=== PATIENT | male | born 1995 | race Caucasian/White ===

== ENCOUNTER 2022-11-10 11:16 | Observation (INO) ==
[2022-11-10] MEDS ORDERED: SODIUM CHLORIDE 0.9% 1000ML 1,000 ML IV ONE (11:34)
[2022-11-10] MEDS ORDERED: KETOROLAC TROMETHAMINE 15 MG/ML VIAL IV STA (11:34)
--- NOTE | 2022-11-10 11:45 | Emergency Department Note ---
Impression & Plan Acute cholecystitis ED Provider Note CHIEF COMPLAINT: Right side pain HISTORY OF PRESENT ILLNESS: This 27-year-old male patient presents to the emergency department via private vehicle for evaluation of "right side pain". The patient states pain began at about 7 PM last evening while he was lying in bed. He notes he ate hot dogs for dinner. He states he developed a pain in the right lower back but now reports a throbbing however on the right side. He states the pain gets worse when there is pressure on either side of the ribs. He states the pain is worse with any pressure on the abdomen. He denies any dysuria, urinary frequency, urinary hesitancy, hematuria. No recent illness or fever. No nausea or vomiting. No diarrhea or constipation. No cough. No leg pain or swelling. The patient states his mother was concerned for appendicitis. He notes no change in his appetite but has not wanted to eat due to the pain. The patient rates his pain 7/10. He has not taken any medications for his symptoms REVIEW OF SYSTEMS: A 10 system review of systems was performed with positives and pertinent negatives listed in the history of present illness. All other systems were reviewed and are negative. ALLERGIES: None PHYSICAL EXAM: VITALS: Vitals are noted on the nurse's note and reviewed by myself. Vital signs stable. GENERAL: This is a 27-year-old man, in no acute distress, nondiaphoretic, well- developed well-nourished. SKIN: The skin was without rashes, erythema, edema, or bruising. There is no tenting of the skin. Capillary refill less than 2 seconds. HEAD: Normocephalic atraumatic. EYES: Conjunctivae without injection, sclerae without icterus. NECK: Supple without nuchal rigidity. No lymphadenopathy. HEART: Regular rate and rhythm without murmurs gallops or rubs. LUNGS: Clear to auscultation bilaterally without wheezes, rales or rhonchi. No retractions or accessory muscle use. ABDOMEN: Positive bowel sounds x 4. Diffuse tenderness to palpation of the left and right upper quadrants. The abdomen is otherwise there is guarding with palpation of the upper abdomen soft, nontender, without masses or organomegaly. Noe sign negative. No rebound tenderness. No CVA tenderness bilaterally MUSCULOSKELETAL: No muscle atrophy, erythema, or edema noted. Full range of motion without joint tenderness in all extremities. No tenderness to palpation. Normal gait. Strength 5/5 throughout. NEURO: Patient was alert and oriented to person place and time. No focal neurological deficits. EMERGENCY DEPARTMENT COURSE/MDM: The patient was seen and evaluated as above. Unclear etiology initially, the patient is complaining of right flank pain ra diating into the right upper quadrant. The patient does have tenderness to palpation of the entire upper abdomen. Work-up completed as noted. IV access was obtained, labs drawn. The patient does have a leukocytosis of 12.25. No concerning anemia or thrombocytopenia. Renal, hepatic function and electrolytes without significant abnormality. Lipase 39. Urinalysis appears to be mildly contaminated, no clear evidence of infection. COVID-[address] imaging was performed due to concern for cholecystitis versus ureteral stone. This was consistent with acute cholecystitis. I did reach out to general surgery and spoke with Ml Goncalves PA-C who did see and evaluate the patient. She requested an ultrasound of the placed at the recommendation of the general surgeon, Dr. Valenzuela. This was ordered and completed. The patient was given a K rider due to the mild hypokalemia of 3.3. Ultrasound was consistent with acute cholecystitis. The patient will be evaluated by the general surgeon. Please see surgery dictation regarding ongoing management and care of this patient. Etiologies such as appendicitis, diverticulitis, obstruction, inflammatory bowel disease, renal colic, PUD, biliary pathology, pancreatitis, mesenteric ischemia, aortic pathology, infections, genitourinary, UTI, perforated viscus, as well as others were entertained. I attest that I have personally reviewed the patient's current medication list. Blood Pressure Screening: Patient was found to have a slightly elevated blood pressure due to circumstances. I do not believe that the patient requires hypertension monitoring. The chart was completed utilizing [employer] Speech voice recognition software. Grammatical errors, random word insertions, pronoun errors, and incomplete sentences are an occasional consequence of this system due to software limitations, ambient noise, and hardware issues. Any formal questions or concerns about the content, text, or information contained within the body of this dictation should be directly addressed to the provider for clarification. Past Med/Surg History Medical History No pertinent past medical history Family History Brother Factor II deficiency Social History Smoking Status: Never smoker Preferred Language: Maltese Feels Safe at Home: Yes Allergies Allergies Allergy/AdvReac Type Severity Reaction Status Date / Time No Known Allergies Allergy Mild Unverified 10/15/07 13:41 Home Meds Home Medications Medication Instructions Recorded Confirmed None (Patient States No Home Meds) ##0 10/15/07 Results & Data (ED) Vital Signs Vital Signs - 24 hr 11/10/22 11:18 11/10/22 11:35 11/10/22 12:28 Temperature 36.4 C L Temperature Source Temporal Artery Scan Pulse Rate 108 H 93 H 99 H Pulse Rate [Apical] Respiratory Rate 18 20 Respiratory Depth Normal Blood Pressure 183/133 H Blood Pressure [Left Arm] Blood Pressure Mean 149 Blood Pressure Mean [Left Arm] Blood Pressure Position [Left Arm] Pulse Oximetry 100 99 Oxygen Delivery Method Room Air Room Air Sepsis Recent Fever Within 48 Hours No Sepsis New/Unexplained Change in Mental Status No Sepsis Action Taken by Nursing No Action Required 11/10/22 13:00 Temperature Temperature Source Pulse Rate Pulse Rate [Apical] 89 Respiratory Rate 20 Respiratory Depth Blood Pressure Blood Pressure [Left Arm] 156/88 H Blood Pressure Mean Blood Pressure Mean [Left Arm] 110 Blood Pressure Position [Left Arm] Sitting Pulse Oximetry 99 Oxygen Delivery Method Room Air Sepsis Recent Fever Within 48 Hours Sepsis New/Unexplained Change in Mental Status Sepsis Action Taken by Nursing Laboratory Data 11/10/22 11:30 11/10/22 11:30 Lab Results 11/10/22 11/10/22 11/10/22 Range/Units 11:30 11:30 11:30 WBC 12.25 H (4.8-10.8) K/ul RBC 4.93 (4.70-6.10) M/uL Hgb 13.8 L (14.0-18.0) g/dl Hct 40.8 L (42.0-52.0) % MCV 82.8 (80.0-100.0) fL MCH 28.0 (25.0-34.0) pg MCHC 33.8 (32.0-36.0) g/dL RDW Std Deviation 37.2 (36.4-46.3) fL RDW Coeff of Ioana 12.3 (11.5-14.5) % Plt Count 286 (130-400) K/uL MPV 10.3 (9.4-12.4) fL Immature Gran % (Auto) 0.2 % Neut % (Auto) 71.6 % Lymph % (Auto) 18.6 % [place] % (Auto) 8.3 % Eos % (Auto) 1.1 % Baso % (Auto) 0.2 % Neut # (Auto) 8.75 H (1.40-6.50) K/uL Lymph # (Auto) 2.28 (1.2-3.4) K/uL [place] # (Auto) 1.02 H (0.11-0.59) K/uL Eos # (Auto) 0.14 (0-0.50) K/uL Baso # (Auto) 0.03 (0-0.2) K/uL Immature Gran # (Auto) 0.03 (0.01-0.20) K/uL APTT (21.0-31.0) Seconds PTT Ratio Sodium 136 (136-145) mmol/L Potassium 3.3 L (3.5-5.1) mmol/L Chloride 104 (98-107) mmol/L Carbon Dioxide 25 (21-32) mmol/L Anion Gap 7 (3-11) BUN 4 L (6-23) mg/dl Creatinine 0.92 (0.6-1.4) mg/dl Est Cr Clr Drug Dosing 144.6 ml/min Est GFR ( Amer) 132.6 ml/min Est GFR (Non-Af Amer) 114.4 ml/min BUN/Creatinine Ratio 4.3 L (10-20) Glucose 103 H (70-99(Fasting)) mg/dl Calcium 9.2 (8.6-10.3) mg/dl Total Bilirubin 0.4 (0.2-1.0) mg/dl AST 17 (13-39) U/L ALT 21 (7-52) U/L Alkaline Phosphatase 90 (34-104) U/L Total Protein 7.5 (6.0-8.3) gm/dl Albumin 4.7 (3.4-5.0) gm/dl Globulin 2.8 (2.5-4.0) gm/dl Albumin/Globulin Ratio 1.7 (0.9-2) Lipase 39 (11-82) U/L Urine Color Yellow Urine Appearance Turbid A (Clear) Urine pH 8.0 H (4.5-7.5) Ur Specific [place] 1.020 (1.000-1.030) Urine Protein Negative (Negative) Urine Glucose (UA) Negative (Negative) Urine Ketones Negative (Negative) Urine Blood Negative (Negative) Urine Nitrite Negative (Negative) Urine Bilirubin Negative (Negative) Urine Urobilinogen Negative (Negative) Ur Leukocyte Esterase Negative (Negative) Urine WBC (Auto) 1-5 (0-5) /hpf Urine RBC (Auto) 0-4 (0-4) /hpf U Hyaline Cast (Auto) 1-5 (0-5) /lpf U Epithel Cells (Auto) 5-10 H (0-5) /lpf Urine Bacteria (Auto) Negative (Negative) SARS-CoV-2, RNA, NAAT (NEGATIVE) 11/10/22 11/10/22 Range/Units 11:42 13:39 WBC (4.8-10.8) K/ul RBC (4.70-6.10) M/uL Hgb (14.0-18.0) g/dl Hct (42.0-52.0) % MCV (80.0-100.0) fL MCH (25.0-34.0) pg MCHC (32.0-36.0) g/dL RDW Std Deviation (36.4-46.3) fL RDW Coeff of Ioana (11.5-14.5) % Plt Count (130-400) K/uL MPV (9.4-12.4) fL Immature Gran % (Auto) % Neut % (Auto) % Lymph % (Auto) % [place] % (Auto) % Eos % (Auto) % Baso % (Auto) % Neut # (Auto) (1.40-6.50) K/uL Lymph # (Auto) (1.2-3.4) K/uL [place] # (Auto) (0.11-0.59) K/uL Eos # (Auto) (0-0.50) K/uL Baso # (Auto) (0-0.2) K/uL Immature Gran # (Auto) (0.01-0.20) K/uL APTT 26.8 (21.0-31.0) Seconds PTT Ratio 1.0 Sodium (136-145) mmol/L Potassium (3.5-5.1) mmol/L Chloride (98-107) mmol/L Carbon Dioxide (21-32) mmol/L Anion Gap (3-11) BUN (6-23) mg/dl Creatinine (0.6-1.4) mg/dl Est Cr Clr Drug Dosing ml/min Est GFR ( Amer) ml/min Est GFR (Non-Af Amer) ml/min BUN/Creatinine Ratio (10-20) Glucose (70-99(Fasting)) mg/dl Calcium (8.6-10.3) mg/dl Total Bilirubin (0.2-1.0) mg/dl AST (13-39) U/L ALT (7-52) U/L Alkaline Phosphatase (34-104) U/L Total Protein (6.0-8.3) gm/dl Albumin (3.4-5.0) gm/dl Globulin (2.5-4.0) gm/dl Albumin/Globulin Ratio (0.9-2) Lipase (11-82) U/L Urine Color Urine Appearance (Clear) Urine pH (4.5-7.5) Ur Specific [place] (1.000-1.030) Urine Protein (Negative) Urine Glucose (UA) (Negative) Urine Ketones (Negative) Urine Blood (Negative) Urine Nitrite (Negative) Urine Bilirubin (Negative) Urine Urobilinogen (Negative) Ur Leukocyte Esterase (Negative) Urine WBC (Auto) (0-5) /hpf Urine RBC (Auto) (0-4) /hpf U Hyaline Cast (Auto) (0-5) /lpf U Epithel Cells (Auto) (0-5) /lpf Urine Bacteria (Auto) (Negative) SARS-CoV-2, RNA, NAAT NEGATIVE (NEGATIVE) Administered Medications Morphine Sulfate (Morphine Sulfate 2 Mg/Ml Carp) 2 mg IV Q2H PRN PRN Reason: Pain Stop: 11/24/22 12:47 Last Admin: 11/10/22 14:48 Dose: 2 mg Documented By: Admin: 11/10/22 12:59 Dose: 2 mg Documented By: QGV Discontinued Medications Sodium Chloride (Nss 1000ml) 1,000 mls @ 999 mls/hr IV .Q1H1M ONE Stop: 11/10/22 12:34 Last Infusion: 11/10/22 13:18 Dose: 0 mls/hr Documented By: Admin: 11/10/22 11:44 Dose: 999 mls/hr Documented By: QGV Potassium Chloride (K Max / Wtr) 10 meq in 100 mls @ 100 mls/hr IV ONE ONE; Protocol Stop: 11/10/22 13:49 Last Admin: 11/10/22 12:58 Dose: 100 mls/hr Documented By: QGV Ketorolac Tromethamine (Ketorolac Tromethamine 15 Mg/Ml Vial) 15 mg IV NOW STA Stop: 11/10/22 11:35 Last Admin: 11/10/22 11:43 Dose: 15 mg Documented By: QGV Morphine Sulfate (Morphine Sulfate 4 Mg/Ml 1 Ml Carp\\Vial) 4 mg IV NOW STA Stop: 11/10/22 12:19 Last Admin: 11/10/22 12:27 Dose: 4 mg Documented By: QGV Ondansetron HCl (Ondansetron Inj 2 Mg/Ml 2 Ml Vial) 4 mg IV NOW STA Stop: 11/10/22 12:07 Last Admin: 11/10/22 12:10 Dose: 4 mg Documented By: QGV Imaging Data Radiologist's Impression: Abdomen/Pelvis CT 11/10/22 11:34 CT SCAN OF THE ABDOMEN AND PELVIS WITHOUT IV CONTRAST CLINICAL HISTORY: Right flank pain. COMPARISON STUDY: No priors. TECHNIQUE: CT scan of the abdomen and pelvis is performed from the lung bases to the proximal femora. Images are reviewed in the axial, sagittal, and coronal planes. IV contrast was not administered for this examination. A dose lowering technique was utilized adhering to the principles of ALARA. CT DOSE: 468.30 mGy.cm FINDINGS: Lung bases: The heart is normal in size and without pericardial effusion. The lung bases are clear. A small hiatal hernia is noted. Liver: The unenhanced liver is mildly enlarged measuring 18.3 cm in length. The liver demonstrates diminished attenuation indicating mild steatosis. There is no intrahepatic biliary ductal dilatation. Gallbladder: The gallbladder is distended and appears mildly thick-walled. There is surrounding infiltration and trace fluid. Findings are consistent with acute cholecystitis. Spleen: Normal in size and attenuation. Pancreas: Unremarkable. Adrenal glands: Unremarkable. Kidneys: The unenhanced kidneys are normal in size and without hydronephrosis. There are no renal calculi identified. There is no evidence of contour deforming renal mass lesion. Abdominal vasculature: The abdominal aorta is normal in course and caliber. Bowel: There is no bowel obstruction. Mild fecal retention is seen throughout the colon. The appendix is well-visualized and normal. Peritoneum: There is no intraperitoneal free air or abdominal ascites. There is a fat-containing umbilical hernia. Lymphadenopathy: None. Pelvic viscera: The bladder is decompressed and grossly unremarkable. The prostate and seminal vesicles are normal as visualized. Skeletal structures: No lytic or blastic lesions are seen. IMPRESSION: 1. Acute cholecystitis. Clinical and laboratory correlation will be required. 2. Hepatomegaly and mild steatosis. 3. Normal appendix. 4. Additional findings as above. ACT 112: Negative or not required by law. Electronically signed by: Jose Eduardo Quijano M.D. 11/10/2022 12:04 PM Chest X-Ray 11/10/22 11:35 XR chest 1V portable HISTORY: epigastric, RUQ pain COMPARISON: None. FINDINGS: The lungs are clear. Cardiac silhouette is normal in size. No pleural effusions. No pneumothorax. IMPRESSION: No acute process. ACT 112: Negative or not required by law. Electronically signed by: Chong Aguilar M.D. 11/10/2022 1:00 PM Liver Ultrasound 11/10/22 12:47 ABDOMINAL ULTRASOUND, RIGHT UPPER QUADRANT HISTORY: Acute right upper quadrant abdominal pain eval for acute yocasta, gallstones. COMPARISON: Study of same day. FINDINGS: Pancreas: The pancreas demonstrates a normal echotexture. Liver: Increased echogenicity of the hepatic parenchyma. The liver measures 15 cm in length. No hepatic mass Gallbladder: Cholelithiasis with layering sludge. The gallbladder wall is upper limits of normal at 3 mm. The pericholecystic inflammation seen on the CT study is not well evaluated by ultrasound. Positive sonographic Noe's sign. CBD: 0.4 cm. Right kidney: No hydronephrosis. IMPRESSION: 1. Cholelithiasis with sonographic findings suggestive of acute cholecystitis. 2. No biliary ductal dilation. ACT 112: Negative or not required by law. Electronically signed by: Hayes Bailey M.D. 11/10/2022 2:07 PM Discharge Plan Visit Data Chief Complaint: Back Injury/Pain Stated Complaint: RIGHT SIDE PAIN ED Provider: Emery Little ED Midlevel Provider: Lara Lassiter Discharge Problem: Acute cholecystitis Patient Disposition: Being Evaluated by Surgeon Condition: Good Forms Stand Alone Forms: Humagade Prescriptions Prescriptions: No Action None (Patient States No Home Meds) . Qty: 0 Referrals Referrals: Kaushal Holman PA-C [Physician Flume Worker] -
[2022-11-10 11:47] LABS: Basophils # (auto) 0.03 K/uL (0-0.2); Basophils % (auto) 0.2 %; Eosinophils # (auto) 0.14 K/uL (0-0.50); Eosinophils % (auto) 1.1 %; Hematocrit (blood only) 40.8 % (42.0-52.0); Hemoglobin 13.8 g/dl (14.0-18.0); Immature Granulocytes # (auto) 0.03 K/uL (0.01-0.20); Immature Granulocytes % (auto) 0.2 %; Lymphocytes # (auto) 2.28 K/uL (1.2-3.4); Lymphocytes % (auto) 18.6 %; Mean Corpuscular Hgb Conc 33.8 g/dL (32.0-36.0); Mean Corpuscular Volume 82.8 fL (80.0-100.0); Mean Platelet Volume 10.3 fL (9.4-12.4); Monocytes # (auto) 1.02 K/uL (0.11-0.59); Monocytes % (auto) 8.3 %; Neutrophils # (auto) 8.75 K/uL (1.40-6.50); Neutrophils % (auto) 71.6 %; Platelet Count 286 K/uL (130-400); RDW Coefficient of Variation 12.3 % (11.5-14.5); RDW Standard Deviation 37.2 fL (36.4-46.3); Red Blood Count 4.93 M/uL (4.70-6.10); White Blood Count 12.25 K/ul (4.8-10.8)
[2022-11-10 12:00] LABS: Appearance Urine Turbid (Clear); Bacteria Urine Automated Negative (Negative); Bilirubin Urine Negative (Negative); Blood Urine Negative (Negative); Color Urine Yellow; Glucose Urine UA Negative (Negative); Ketones Urine Negative (Negative); Leukocyte Esterase Urine Negative (Negative); Nitrite Urine Negative (Negative); Protein Urine Negative (Negative); RBC Urine Automated 0-4 /hpf (0-4); Urobilinogen Urine Negative (Negative)
[2022-11-10] MEDS ORDERED: ONDANSETRON INJ 2 MG/ML 2 ML VIAL IV STA (12:06)
--- NOTE | 2022-11-10 12:06 | CT Scan Report ---
CT SCAN OF THE ABDOMEN AND PELVIS WITHOUT IV CONTRAST CLINICAL HISTORY: Right flank pain. COMPARISON STUDY: No priors. TECHNIQUE: CT scan of the abdomen and pelvis is performed from the lung bases to the proximal femora. Images are reviewed in the axial, sagittal, and coronal planes. IV contrast was not administered for this examination. A dose lowering technique was utilized adhering to the principles of ALARA. CT DOSE: 468.30 mGy.cm FINDINGS: Lung bases: The heart is normal in size and without pericardial effusion. The lung bases are clear. A small hiatal hernia is noted. Liver: The unenhanced liver is mildly enlarged measuring 18.3 cm in length. The liver demonstrates di minished attenuation indicating mild steatosis. There is no intrahepatic biliary ductal dilatation. Gallbladder: The gallbladder is distended and appears mildly thick-walled. There is surrounding infil tration and trace fluid. Findings are consistent with acute cholecystitis. Spleen: Normal in size and attenuation. Pancreas: Unremarkable. Adrenal glands: Unremarkable. Kidneys: The unenhanced kidneys are normal in size and without hydronephrosis. There are no renal ton culi identified. There is no evidence of contour deforming renal mass lesion. Abdominal vasculature: The abdominal aorta is normal in course and caliber. Bowel: There is no bowel obstruction. Mild fecal retention is seen throughout the colon. The appendix is well-visualized and normal. Peritoneum: There is no intraperitoneal free air or abdominal ascites. There is a fat-containing umbi lical hernia. Lymphadenopathy: None. Pelvic viscera: The bladder is decompressed and grossly unremarkable. The prostate and seminal vesicl es are normal as visualized. Skeletal structures: No lytic or blastic lesions are seen. IMPRESSION: 1. Acute cholecystitis. Clinical and laboratory correlation will be required. 2. Hepatomegaly and mild steatosis. 3. Normal appendix. 4. Additional findings as above. ACT 112: Negative or not required by law. Electronically signed by: Jose Eduardo Quijano M.D. 11/10/2022 12:04 PM
[2022-11-10 12:07] LABS: Albumin Level 4.7 gm/dl (3.4-5.0); Bilirubin,Total 0.4 mg/dl (0.2-1.0); Calcium 9.2 mg/dl (8.6-10.3); Potassium 3.3 mmol/L (3.5-5.1)
[2022-11-10 12:13] LABS: Albumin Globulin Ratio 1.7 (0.9-2); BUN Creatinine Ratio 4.3 (10-20); Creatinine Clr Calc Pharmacy 144.6 ml/min; Est GFR (African American) 132.6 ml/min; Est GFR (Non-African American) 114.4 ml/min; Globulin 2.8 gm/dl (2.5-4.0); Total Protein 7.5 gm/dl (6.0-8.3)
[2022-11-10] MEDS ORDERED: MoRPHine SULFATE 4 MG/ML 1 ML CARP\\VIAL IV STA (12:18)
--- NOTE | 2022-11-10 12:49 | History & Physical Report ---
Date of Service November 10, 2022 Assessment & Plan (1) Acute cholecystitis: Plan: This is a 27y M with no significant PMH who presents to the [facility] ED on 11/10/22 with complaints of abdominal and back pain starting yesterday evening after eating hotdogs for dinner. Pain is located underneath his R shoulder blade that radiates across his upper R abdomen. A CT a/p was obtained that revealed evidence of acute cholecystitis. WBC 12.5. LFTs are unremarkable. K 3.3. Vitals show patient is slightly sinus tachycardic with hypertension. On exam patient appears uncomfortable due to pain. His abdomen is soft with tenderness to palpation elicited in the RUQ. Interesting CT scan without mention of gallstones. History of Present Illness Primary Care Provider: NO PCP This is a 27y M with no significant PMH who presents to the [facility] ED on 11/10/22 with complaints of abdominal and back pain. He states the pain started yesterday around 7pm, located underneath his R shoulder blade. It then progressed from his back across his right upper abdomen/epigastric region. He reports sometimes the pain reaches a 9/10 in severity. He describes it as constant with intermittent waves of severe pain. He last ate hotdogs last night for dinner prior to pain starting. He reported to the ER due to ongoing symptoms. A CT a/p was obtained that revealed evidence of acute cholecystitis. He endorses + nausea and mild SOB related to the pain. He denies any fevers/chills, CP, diarrhea/constipation, or urinary symptoms. No prior surgical history. His brother has a history of Prothrombin gene mutation making him susceptible to blood clots. The mother is a carrier and his brother has a different father. Humble himself has never been tested and he has never had prior surgeries. Allergies Allergy/AdvReac Type Severity Reaction Status Date / Time No Known Allergies Allergy Mild Unverified 10/15/07 13:41 Home Medications Medication Instructions Recorded Confirmed Type None (Patient States No Home Meds) ##0 10/15/07 History Past Med/Surg History Medical History No pertinent past medical history Family History Brother Factor II deficiency Social History Smoking Status: Never smoker Preferred Language: Thai Feels Safe at Home: Yes Review of Systems Constitutional: no fever and no chills Respiratory: mild SOB with severity of pain Cardiovascular: no chest pain Gastrointestinal: + abdominal pain (RUQ), + bloating and + nausea; no vomiting and no change in bowel habits Genitourinary: no problem reported Musculoskeletal: R sided back pain Physical Exam Physical Exam: awake/alert, in mild distress secondary to pain Constitutional: well developed, well nourished and + acute distress; not ill appearing and + uncomfortable not toxic appearing but writhing in pain Respiratory: normal respiratory effort Gastrointestinal (Abdomen): Inspection/Auscultation: + abdomen distended (mild) Percussion/Palpation: + abdomen tender (ttp in RUQ/epigastric regions) and abdomen soft Results & Data Results & Data Vital Signs (Past 12 Hours) Vital Signs Temp Pulse Resp BP Pulse Ox O2 Del Method 11/10/22 12:28 99 H 11/10/22 11:35 93 H 20 99 Room Air 11/10/22 11:18 36.4 C L 108 H 18 183/133 H 100 Room Air Diagnostic Findings CT SCAN OF THE ABDOMEN AND PELVIS WITHOUT IV CONTRAST CLINICAL HISTORY: Right flank pain. COMPARISON STUDY: No priors. TECHNIQUE: CT scan of the abdomen and pelvis is performed from the lung bases to the proximal femora. Images are reviewed in the axial, sagittal, and coronal planes. IV contrast was not administered for this examination. A dose lowering technique was utilized adhering to the principles of ALARA. CT DOSE: 468.30 mGy.cm FINDINGS: Lung bases: The heart is normal in size and without pericardial effusion. The lung bases are clear. A small hiatal hernia is noted. Liver: The unenhanced liver is mildly enlarged measuring 18.3 cm in length. The liver demonstrates diminished attenuation indicating mild steatosis. There is no intrahepatic biliary ductal dilatation. Gallbladder: The gallbladder is distended and appears mildly thick-walled. There is surrounding infiltration and trace fluid. Findings are consistent with acute cholecystitis. Spleen: Normal in size and attenuation. Pancreas: Unremarkable. Adrenal glands: Unremarkable. Kidneys: The unenhanced kidneys are normal in size and without hydronephrosis. There are no renal calculi identified. There is no evidence of contour deforming renal mass lesion. Abdominal vasculature: The abdominal aorta is normal in course and caliber. Bowel: There is no bowel obstruction. Mild fecal retention is seen throughout the colon. The appendix is well-visualized and normal. Peritoneum: There is no intraperitoneal free air or abdominal ascites. There is a fat-containing umbilical hernia. Lymphadenopathy: None. Pelvic viscera: The bladder is decompressed and grossly unremarkable. The [place] and seminal vesicles are normal as visualized. Skeletal structures: No lytic or blastic lesions are seen. IMPRESSION: 1. Acute cholecystitis. Clinical and laboratory correlation will be required. 2. Hepatomegaly and mild steatosis. 3. Normal appendix. 4. Additional findings as above. ACT 112: Negative or not required by law. Electronically signed by: Jose Eduardo Quijano M.D. 11/10/2022 12:04 PM Supervising Physician Co-Signing Physician Notes I saw and examined this patient in the ED. Clarified it is not a Factor 2 deficiency that would make the patient susceptible to bleeding but instead, the mother is a carrier of a prothrombin gene mutation which makes a homozygous child more susceptible to blood clots as in the case of his half brother. The mother herself has had surgery and has never had blood clots. RUQ US with numerous stones and sludge in the gallbladder. Mild signs of acute cholecystitis on the US. Afebrile, HD stable. COVID test (-). Patient in severe RUQ and right back pain and had a (+) Noe's sign with mild leukocytosis. IV antibiotics initiated. Patient started on Zosyn in the ED. Hypokalemia- patient was given a dose of K for replacement. Admit to observation under the surgical service. Will take to the OR today for planned lap yocasta. The details of the procedure were explained to the patient with his mother and brother present. Understanding of the explanation of risks and benefits was expressed and consent was obtained. Will give a dose of SQ Heparin preoperatively. SCDs to b/l LE PG Care Time/CCT Total # of Minutes Spent Total Time Spent with Patient: Total time spent is greater than 50% in coordination of care (as documented) at patient's floor/unit and/or counseling patient: Coding Level of Care Code 09613 INT INP/OBS CARE 1/40MIN Diagnoses Acute cholecystitis K81.0
[2022-11-10] MEDS ORDERED: POTASSIUM CHLORIDE / WTR 10 MEQ/100 ML PLCT IV ONE (12:50)
[2022-11-10] MEDS: MoRPHine SULFATE 2 MG/ML CARP IV PRN ×2 (12:59→14:48)
--- NOTE | 2022-11-10 13:02 | XRay Report ---
XR chest 1V portable HISTORY: epigastric, RUQ pain COMPARISON: None. FINDINGS: The lungs are clear. Cardiac silhouette is normal in size. No pleural effusions. No pneumot horax. IMPRESSION: No acute process. ACT 112: Negative or not required by law. Electronically signed by: Chong Aguilar M.D. 11/10/2022 1:00 PM
--- NOTE | 2022-11-10 14:09 | Ultrasound Report ---
ABDOMINAL ULTRASOUND, RIGHT UPPER QUADRANT HISTORY: Acute right upper quadrant abdominal pain eval for acute yocasta, gallstones. COMPARISON: Study of same day. FINDINGS: Pancreas: The pancreas demonstrates a normal echotexture. Liver: Increased echogenicity of the hepatic parenchyma. The liver measures 15 cm in length. No hepat ic mass Gallbladder: Cholelithiasis with layering sludge. The gallbladder wall is upper limits of normal at 3 mm. The pericholecystic inflammation seen on the CT study is not well evaluated by ultrasound. Posit shan sonographic Noe's sign. CBD: 0.4 cm. Right kidney: No hydronephrosis. IMPRESSION: 1. Cholelithiasis with sonographic findings suggestive of acute cholecystitis. 2. No biliary ductal dilation. ACT 112: Negative or not required by law. Electronically signed by: Hayes Bailey M.D. 11/10/2022 2:07 PM
[2022-11-10] MEDS ORDERED: PIPERACILLIN/TAZOBACTAM 3.375 GM in DEXTROSE 5% 100 ML/100 ML BAG IV STA (14:19)
[2022-11-10 14:56] LABS: Partial Thromboplastin Time 26.8 Seconds (21.0-31.0)
[2022-11-10] MEDS ORDERED: LACTATED RINGER'S 1,000 ML IV SCH (15:00)
[2022-11-10] MEDS ORDERED: HEPARIN SOD 5,000 UNIT/0.5 ML VIAL SQ SCH (15:00)
[2022-11-10] MEDS ORDERED: ATROPINE SULFATE 0.1 MG/ML 10ML SYR IV PRN (15:01)
[2022-11-10] MEDS ORDERED: fentaNYL citrate PF 100 MCG/2 ML VIAL IV PRN (15:01)
[2022-11-10] MEDS ORDERED: ePHEDrine sulfate 50 MG/ML AMP IV PRN (15:01)
[2022-11-10] MEDS ORDERED: BUPIVACAINE/EPINEPHRINE 0.5% MPF 1:200,000 30 ML VIAL ONE (15:01)
[2022-11-10] MEDS ORDERED: ONDANSETRON INJ 2 MG/ML 2 ML VIAL IV PRN ×2 (15:01→20:17)
--- NOTE | 2022-11-10 15:01 | Anesthesiology Consultation ---
Date of Service November 10, 2022 Assessment & Plan (1) Encounter for pre-operative examination: Chart Review Chart Review: Acceptable Risk for Surgery and Patient NOT seen in Pre Admission Testing Consults Requested none History Surgery Operation Date: 11/10/22 07:00 Proposed Procedures p Laparoscopic Cholecystectomy - Zee Valenzuela DO Height/Weight Height: 6 ft Weight: 93.7 kg Allergies Allergy/AdvReac Type Severity Reaction Status Date / Time No Known Allergies Allergy Mild Unverified 10/15/07 13:41 Medications Home Medications Medication Instructions Recorded Confirmed Last Taken None (Patient States No Home Meds) ##0 10/15/07 Unknown Active Medications Generic Name Dose Route Start Last Admin Trade Name Freq PRN Reason Stop Dose Admin Morphine Sulfate 2 mg 11/10/22 12:48 11/10/22 14:48 Morphine Sulfate 2 Mg/Ml Carp IV 11/24/22 12:47 2 mg Q2H PRN Administration Pain Past Medical History Medical History No pertinent past medical history Past Family History Family History Brother Factor II deficiency Social History Smoking Status: Never smoker Physical Exam Vital Signs Last Vital Signs Temp 97.5 F L 11/10/22 11:18 Pulse 89 11/10/22 13:00 Resp 20 11/10/22 13:00 BP 156/88 H 11/10/22 13:00 Pulse Ox 99 11/10/22 13:00 O2 Del Method Room Air 11/10/22 13:00 Testing Laboratory Results 11/10/22 11:30 11/10/22 11:30 APTT 26.8 Seconds (21.0-31.0) 11/10/22 11:42 Urine Color Yellow 11/10/22 11:30 Urine Appearance Turbid (Clear) A 11/10/22 11:30 Urine pH 8.0 (4.5-7.5) H 11/10/22 11:30 Ur Specific [place] 1.020 (1.000-1.030) 11/10/22 11:30 Urine Protein Negative (Negative) 11/10/22 11:30 Urine Glucose (UA) Negative (Negative) 11/10/22 11:30 Urine Ketones Negative (Negative) 11/10/22 11:30 Urine Nitrite Negative (Negative) 11/10/22 11:30 Ur Leukocyte Esterase Negative (Negative) 11/10/22 11:30 Urine WBC (Auto) 1-5 /hpf (0-5) 11/10/22 11:30 Urine RBC (Auto) 0-4 /hpf (0-4) 11/10/22 11:30 U Hyaline Cast (Auto) 1-5 /lpf (0-5) 11/10/22 11:30 U Epithel Cells (Auto) 5-10 /lpf (0-5) H 11/10/22 11:30 Urine Bacteria (Auto) Negative (Negative) 11/10/22 11:30
[2022-11-10] MEDS ORDERED: MIDAZOLAM HCL 1 MG/ML 2ML VIAL ONE (15:04)
[2022-11-10] MEDS ORDERED: ROCURONIUM BROMIDE 10 MG/ML 5 ML VIAL IV ONE (15:04)
[2022-11-10] MEDS ORDERED: PROPOFOL IV EMULSION 10 MG/ML 20 ML VIAL IV ONE (15:04)
[2022-11-10] MEDS ORDERED: fentaNYL citrate PF 100 MCG/2 ML VIAL ONE ×2 (15:04→15:41)
[2022-11-10] MEDS ORDERED: ONDANSETRON INJ 2 MG/ML 2 ML VIAL ONE (15:04)
[2022-11-10] MEDS ORDERED: DEXAMETHASONE SOD INJ 4 MG/ML VIAL ONE (15:04)
[2022-11-10] MEDS ORDERED: LIDOCAINE 2% MPF LOCAL 5 ML VIAL ONE (15:04)
[2022-11-10] MEDS ORDERED: KETAMINE 50 MG/5 ML SYRINGE ONE (16:11)
[2022-11-10] MEDS ORDERED: HYDROmorphone INJ 2 MG/ML SYR/VIAL ONE (17:22)
[2022-11-10] MEDS ORDERED: FLOSEAL HEMOSTATIC MATRIX 5ML TOP ONE (17:24)
[2022-11-10] MEDS ORDERED: LABETALOL HCL IV 5 MG/ML 20ML IV ONE (17:39)
[2022-11-10] MEDS ORDERED: GLYCOPYRROLATE 0.2 MG/ML VIAL ONE (17:57)
[2022-11-10] MEDS ORDERED: NEOSTIGMINE METHYLSULFATE 1 MG/ML 10ML VIAL ONE (17:57)
--- NOTE | 2022-11-10 18:28 | Post Operative Brief Note ---
PG Immediate Post Op with CF Date of Surgery November 10, 2022 Pre & Post Diagnosis Operation Date: 11/10/22 07:00 Pre-Op Diagnosis: Acute cholecystitis Post-Op Diagnosis: Acute cholecystitis I identified the patient and participated in the time-out.: Yes Procedure Operation Date: 11/10/22 07:00 Actual Procedures p Laparoscopic Cholecystectomy - Zee Valenzuela DO Surgeon Zee Valenzuela DO Municipal Engineer no physician Estimated Blood Loss 30 Findings Consistent with Post-Op Diagnosis Acutely infected gallbladder Specimens Specimen Description: a. gallbladder and contents Complications None
--- NOTE | 2022-11-10 19:13 | Anesthesiology Progress Note ---
Date of Service November 10, 2022 Anesthesia Post Procedure Vital Signs Vital Signs: Temp Pulse Pulse Resp BP BP Pulse Ox 11/10/22 19:00 105 H 19 119/67 100 11/10/22 18:55 101 H 15 123/66 100 11/10/22 18:45 72 10 L 118/74 100 11/10/22 18:35 36.3 C L 76 12 109/70 100 11/10/22 18:26 36.3 C L 83 18 105/66 100 11/10/22 15:35 36.9 C 86 18 161/100 H 97 11/10/22 15:01 80 17 97 11/10/22 13:00 89 20 156/88 H 99 11/10/22 12:28 99 H 11/10/22 11:35 93 H 20 99 11/10/22 11:18 36.4 C L 108 H 18 183/133 H 100 O2 Del Method O2 Flow Rate 11/10/22 19:00 Nasal Cannula 3 11/10/22 18:55 Oxymask 8 11/10/22 18:45 Oxymask 10 11/10/22 18:35 Oxymask 10 11/10/22 18:26 Oxymask 10 11/10/22 15:35 Room Air 11/10/22 15:01 Room Air 11/10/22 13:00 Room Air 11/10/22 12:28 11/10/22 11:35 Room Air 11/10/22 11:18 Room Air Transfer of Care Handoff Completed per policy Notes Mental Status: alert / awake / arousable and participated in evaluation Patient Amnestic to Procedure: Yes Nausea / Vomiting: adequately controlled Pain: adequately controlled Airway Patency, RR, SpO2: stable & adequate BP & HR: stable & adequate Hydration State: stable & adequate Anesthetic Complications: no major complications apparent and Pt Satisfied with anesthetic care
--- NOTE | 2022-11-10 19:42 | Operative Report ---
PG Post Operative Report Pre & Post Diagnosis Operation Date: 11/10/22 07:00 Pre-Op Diagnosis: Acute cholecystitis Post-Op Diagnosis: Acute cholecystitis I identified the patient and participated in the time-out.: Yes Procedure Operation Date: 11/10/22 07:00 Actual Procedures p Laparoscopic Cholecystectomy - Zee Valenzuela DO Surgeon Zee Valenzuela DO Churn Operator Margarine no physician Estimated Blood Loss 30 Findings Consistent with Post-Op Diagnosis Distended, firm gallbladder. Specimens Gallbladder Description of Procedure The patient was brought back to the operating room and placed on the OR table in supine position. Heparin 5000 SQ was administered. He was connected to cardiac and O2 monitoring and administered general anesthesia. A controlled airway was inserted. The abdomen was prepped and draped in typical sterile fashion with the operative site in view. Local anesthetic was injected into the skin at the supraumbilical area. A small stab incision was made with an 11 blade. The fascia was elevated with a towel clamp and a Veress needle was used to access the intra-abdominal space. The abdomen was insufflated to a goal pressure of 15 mmHg using CO2. Local anesthetic was injected at the epigastric area and an 11 mm port was inserted under direct visualization. After injecting local anesthetic into the skin at 2 sites along the right subcostal margin, 2 stab incisions were made with an 11 blade and two 5 mm trocars were inserted under direct visualization. There were no injuries to intra-abdominal contents identified during the insertion of the trocars. The gallbladder was very firm and distended difficult to manipulate so it was decompressed using a harpoon needle and suction. The omentum was encasing the gallbladder and this needed to be peeled away gently. There was some bleeding of omental tissues due to the dense adherence to the gallbladder. The infundibulum of the gallbladder was eventually exposed and grasped with a grasper. The cystic triangle was dilated using alternating suction and a [place] dissector. A large Calot's node was identified. The cystic duct was identified and clamped with 5 mm clips 2 proximally and 1 distally. The cystic duct was then transected using as laparoscopic can. The cystic artery was identified 3 clips were placed on this proximally. The artery was transected with the Bovie. The gallbladder was dissected away from the liver bed using cautery. There was oozing of the liver bed this was cont rolled with cautery. The area was copiously irrigated and rechecked for hemostasis. Once hemostasis was achieved with cautery, Floseal was used at the liver bed. The gallbladder was removed through the epigastric 11 mm trocar site. The trocar was replaced and the area of the liver bed was again copiously irrigated and suctioned and double checked to make sure hemostasis was still adequate. Once hemostasis was achieved the trocars were removed under direct visualization to be sure there was no bleeding from the muscles. There was no bleeding. CO2 insufflation was discontinued, excess CO2 was evacuated from the abdomen, all of the instruments and trocars were removed. The gallbladder was sent off to pathology and labeled container for analysis. The epigastric port site was closed at the level of the fascia with 0 Vicryl sutures. Local anesthetic was injected into the subcutaneous tissue at all 4 incision sites. 4-0 Vicryl was used to approximate the dermis at all 4 incision sites. The incisions were then dressed with Dermabond glue. The patient tolerated the procedure well. He was awakened from anesthesia, the secure airway was removed and the patient was transferred to recovery in stable condition. I attest to the content of the Intraoperative Record and any orders documented therein. Any exceptions are noted below.
[2022-11-10] MEDS ORDERED: ACETAMINOPHEN 325 MG TAB PO PRN (20:17)
[2022-11-10] MEDS ORDERED: oxyCODONE HCL IR 5 MG TAB (IMMEDIATE RELEASE) PO PRN ×2 (20:17)
[2022-11-10] MEDS: LACTATED RINGER'S 1,000 ML IV SCH (21:08)
[2022-11-11 07:04] LABS: Basophils # (auto) 0.01 K/uL (0-0.2); Basophils % (auto) 0.1 %; Hematocrit (blood only) 36.2 % (42.0-52.0); Hemoglobin 12.1 g/dl (14.0-18.0); Immature Granulocytes # (auto) 0.07 K/uL (0.01-0.20); Immature Granulocytes % (auto) 0.5 %; Lymphocytes # (auto) 1.41 K/uL (1.2-3.4); Lymphocytes % (auto) 10.6 %; Mean Corpuscular Hemoglobin 28.1 pg (25.0-34.0); Mean Corpuscular Hgb Conc 33.4 g/dL (32.0-36.0); Mean Platelet Volume 10.9 fL (9.4-12.4); Monocytes # (auto) 1.17 K/uL (0.11-0.59); Monocytes % (auto) 8.8 %; Neutrophils # (auto) 10.64 K/uL (1.40-6.50); Platelet Count 244 K/uL (130-400); RDW Coefficient of Variation 12.6 % (11.5-14.5); RDW Standard Deviation 38.5 fL (36.4-46.3); Red Blood Count 4.31 M/uL (4.70-6.10)
[2022-11-11 07:31] LABS: Bilirubin Direct 0.1 mg/dl (0-0.2); Bilirubin,Total 0.7 mg/dl (0.2-1.0); Calcium 8.8 mg/dl (8.6-10.3); Creatinine Clr Calc Pharmacy 158.4 ml/min; Est GFR (African American) 140.1 ml/min; Est GFR (Non-African American) 120.8 ml/min; Potassium 4.2 mmol/L (3.5-5.1); Total Protein 6.7 gm/dl (6.0-8.3)
[2022-11-11] MEDS ORDERED: oxyCODONE/ACETAMINOPHEN 5mg/325mg TAB PO PRN (12:17)
[2022-11-11] MEDS ORDERED: PIPERACILLIN/TAZOBACTAM 3.375 GM (over 30 mins) IV ONE (12:30)
--- NOTE | 2022-11-11 14:01 | Surgery Progress Note ---
Date of Service November 11, 2022 Assessment & Plan (1) Acute cholecystitis: Plan: POD 1 s/p laparoscopic cholecystectomy. Afebrile with stable VSS H/H decreased 1 gram from pre-operative H/H Oral pain medications for pain control Continue 24 hours of antibiotics F/U am labs Admission and Anticipated Discharge Date Admission Date: November 10, 2022 Subjective The patient was seen this am. He c/o mild pain when he takes a deep breath in. He has not had pain medication. He denies nausea. Physical Exam Constitutional: no acute distress, not ill appearing and + uncomfortable Respiratory: normal respiratory effort; no respiratory distress, no labored breathing and does not use accessory muscles Gastrointestinal (Abdomen): Inspection/Auscultation: abdomen normal to inspec tion (incisions intact); abdomen not distended Percussion/Palpation: abdomen soft Results & Data Vital Signs (Past 12 Hours) Vital Signs Temp Pulse Resp BP Pulse Ox O2 Del Method 11/11/22 11:00 36.7 C 98 H 14 130/69 98 Room Air 11/11/22 07:00 36.7 C 81 12 134/88 98 Room Air 11/11/22 06:25 97 H 11/11/22 03:07 36.9 C 112 H 16 126/75 97 Room Air PG Care Time/CCT Total # of Minutes Spent Total Time Spent with Patient: Total time spent is greater than 50% in coordination of care (as documented) at patient's floor/unit and/or counseling patient: Coding Level of Care Code 26795 SUB INP/OBS CARE 09/08MIN Diagnoses Acute cholecystitis K81.0
[2022-11-11] MEDS: LACTATED RINGER'S 1,000 ML IV SCH (15:17)
[2022-11-11] MEDS: PIPERACILLIN/TAZOBACTAM 3.375 GM in DEXTROSE 5% 100 ML IV SCH (18:07)
[2022-11-12] MEDS: PIPERACILLIN/TAZOBACTAM 3.375 GM in DEXTROSE 5% 100 ML IV SCH ×2 (03:00→09:13)
[2022-11-12] MEDS: oxyCODONE/ACETAMINOPHEN 5mg/325mg TAB PO PRN ×2 (03:13→12:36)
[2022-11-12 06:52] LABS: Basophils # (auto) 0.04 K/uL (0-0.2); Basophils % (auto) 0.4 %; Eosinophils % (auto) 0.9 %; Hematocrit (blood only) 37.2 % (42.0-52.0); Hemoglobin 12.1 g/dl (14.0-18.0); Immature Granulocytes # (auto) 0.04 K/uL (0.01-0.20); Immature Granulocytes % (auto) 0.4 %; Lymphocytes # (auto) 1.97 K/uL (1.2-3.4); Lymphocytes % (auto) 17.4 %; Mean Corpuscular Hemoglobin 27.8 pg (25.0-34.0); Mean Corpuscular Hgb Conc 32.5 g/dL (32.0-36.0); Mean Corpuscular Volume 85.3 fL (80.0-100.0); Mean Platelet Volume 10.7 fL (9.4-12.4); Monocytes # (auto) 1.13 K/uL (0.11-0.59); Neutrophils # (auto) 8.07 K/uL (1.40-6.50); Neutrophils % (auto) 70.9 %; Platelet Count 241 K/uL (130-400); RDW Coefficient of Variation 12.8 % (11.5-14.5); RDW Standard Deviation 39.4 fL (36.4-46.3); Red Blood Count 4.36 M/uL (4.70-6.10); White Blood Count 11.35 K/ul (4.8-10.8)
[2022-11-12 07:16] LABS: BUN Creatinine Ratio 7.2 (10-20); Bilirubin Direct 0.1 mg/dl (0-0.2); Calcium 8.9 mg/dl (8.6-10.3); Creatinine Clr Calc Pharmacy 137.2 ml/min; Est GFR (African American) 124.4 ml/min; Est GFR (Non-African American) 107.3 ml/min; Total Protein 6.9 gm/dl (6.0-8.3)
--- NOTE | 2022-11-12 08:33 | Surgery Progress Note ---
I saw this patient with the surgical PA. I agree with the plan. Date of Service November 12, 2022 Assessment & Plan (1) Acute cholecystitis: Plan: POD#2 lap yocasta WBC 11(13), Hbg stable at 12. Vitals stable Tolerating diet. Pain overall controlled Incisions c/d/i Anticipate discharge to home later today F/u in clinic with Dr. Valenzuela within 2 weeks Admission and Anticipated Discharge Date Admission Date: November 10, 2022 Subjective Patient is feeling well. Pain tolerable. Has some discomfort with deep breaths on the R side, but he is not SOB and pain is manageable. He is tolerating a regular diet. No n/v. Passing gas. Physical Exam Physical Exam: awake/alert, no distress Gastrointestinal (Abdomen): Inspection/Auscultation: + abdominal surgical incision (c/d/i); abdomen not distended Percussion/Palpation: + abdomen tender (expected discomfort to palpation in the RUQ) and abdomen soft Results & Data Vital Signs (Past 12 Hours) Vital Signs Temp Pulse Pulse Resp BP Pulse Ox O2 Del Method 11/12/22 08:15 36.7 C 83 17 112/76 97 Room Air 11/11/22 23:10 37.0 C 89 18 124/74 98 Room Air PG Care Time/CCT Total # of Minutes Spent Total Time Spent with Patient: Total time spent is greater than 50% in coordination of care (as documented) at patient's floor/unit and/or counseling patient: Coding Level of Care Code 43908 Post Operative Follow-Up Diagnoses Acute cholecystitis K81.0
--- NOTE | 2022-11-15 08:56 | Discharge Summary ---
Date of Service November 12, 2022 Admission HPI Per Admitting Provider This is a 27y M with no significant PMH who presents to the [facility] ED on 11/10/22 with complaints of abdominal and back pain. He states the pain started yesterday around 7pm, located underneath his R shoulder blade. It then progressed from his back across his right upper abdomen/epigastric region. He reports sometimes the pain reaches a 9/10 in severity. He describes it as constant with intermittent waves of severe pain. He last ate hotdogs last night for dinner prior to pain starting. He reported to the ER due to ongoing symptoms. A CT a/p was obtained that revealed evidence of acute cholecystitis. He endorses + nausea and mild SOB related to the pain. He denies any fevers/chills, CP, diarrhea/constipation, or urinary symptoms. No prior surgical history. His brother has a history of Prothrombin gene mutation making him susceptible to blood clots. The mother is a carrier and his brother has a different father. Humble himself has never been tested and he has never had prior surgeries. Discharge Data Consultations 11/10/22 12:31 Consult General Surgery Stat Procedures Performed Operation Date: 11/10/22 07:00 Actual Procedures p Laparoscopic Cholecystectomy - Zee Valenzuela DO Hospital Course (1) Acute cholecystitis: Birdie Kate was admitted with acute cholecystitis on November 10, 2022 he underwent a laparoscopic cholecystectomy that same evening. Following day Humble is H&H was 1 g lower than his preoperative level so he was monitored. He was able to be advanced on his diet and converted to oral pain medications. Humble was discharged on postop day 2, November 12, 2022 at which time his H&H were stable, his pain was well controlled and he was tolerating regular diet.
== END 2022-11-12 14:21 | disposition home or self-care (01) ==
LOC: ED 11:16 → 3W 15:21 → OR 15:21
DX: K80.12 Calculus of gallbladder with acute and chronic cholecystitis without obstruction